=== PATIENT | male | born 1965 | race Caucasian/White ===

== ENCOUNTER 2017-05-12 18:01 | Emergency (ER) | payer MEDICAID, SELFPAY ==
[2017-05-12 18:01] VITALS: BP 123/77; PULSE 87; RESP 16; TEMP 36.2; O2SAT 100; BMI 20.7
--- NOTE | 2017-05-12 18:56 | CT_ITS ---
STUDY: CT ABDOMEN AND PELVIS WITHOUT CONTRAST REASON FOR EXAM: Male, 52 years old. Left flank pain and history of kidney stone RADIATION DOSAGE (If Supplied By Facility): CTDIvol = ( 6.74 ) mGy, DLP = ( 304.65 ) mGycm TECHNIQUE: Transaxial images were obtained from the dome of the diaphragm to the symphysis pubis without oral contrast, and without intravenous contrast. Sagittal and coronal images were reconstructed. Individualized dose optimization techniques were used for this CT. COMPARISON: None. FINDINGS: The visualized lung bases are unremarkable. The visualized portions of the heart are within normal limits. Normal liver. Normal gallbladder and extrahepatic biliary system. Normal spleen. Normal pancreas. Normal bilateral adrenal glands. Punctate nonobstructing nephroliths on the right. Mild left hydronephrosis. As a punctate ureterolith in the mid ureter measuring a millimeter or less. Normal visualized stomach. Normal small intestine. Sigmoid diverticulosis without evidence of acute inflammation. Colon is otherwise normal. The appendix is visualized and appears normal. Normal abdominal aorta. Normal inferior vena cava. Normal retroperitoneum. Normal urinary bladder. There is a small umbilical hernia containing fat. Normal osseous structures. CT/Abdomen/Pelvis without Cont IMPRESSION: Mild left hydronephrosis due to a punctate mid ureterolith. Electronically Signed: Christiano Harmon MD at 20:04 EDT , Service support ,
--- NOTE | 2017-05-12 18:57 | ED.VISSUMM ---
- ER Visit Summary Date of Service: 05/12/17 Chief Complaint: Left flank pain History of Present Illness: The patient is a 52 M presenting with left flank pain which started yesterday. He states this feels similar to his previous kidney stones. He believes he may have passed a kidney stone yesterday. He still has continuous pain in the left flank. He has had hematuria. He denies fever or other complaints. Physical Examination: Vitals are stable. Patient is afebrile. Alert no acute distress. HEENT exam is unremarkable. Neck is supple. Lungs are clear and equal bilaterally. Heart is regular rate and rhythm. Abdomen is soft nontender nondistended. No guarding or rebound Back: no cva tenderness Extremities are unremarkable. Skin is warm and dry. No focal neurologic deficit. Remainder of exam is unremarkable. Emergency Department Course and Treatment: Patient is ordered Toradol IV and declines. UA shows 5-10 red blood cells, 0-5 white blood cells. He is resting comfortably in the ED on reevaluation without medications. CT abdomen pelvis without contrast shows mild left hydronephrosis due to a punctate mid ureterolith. Patient is resting comfortably in the ED. He is given a prescription for naproxen. He is advised to follow-up with Dr. Lassiter. Advised return to ED for worsening complaints. Disposition: Discharge home Impression: Urolithiasis This note was generated with [employer] dictation software. It may contain incorrect words, spelling, and punctuation that were not noted in review of the chart prior to signing ED Disposition - Plan for ED Patient: Chief Complaint: Flank Pain Referrals: NOT,DEFINED [NON-STAFF] -
[2017-05-12 19:19] LABS: Bacteria 0 SEEN /hpf (None Seen); Mucous, Urine 0 SEEN /hpf (<or=2+)
--- NOTE | 2017-05-12 19:24 | ED.RN ---
DR FITZPATRICK AWARE THAT PT REFUSED IV AND MED.
[2017-05-12 19:26] LABS: Color, Urine Yellow (Yellow); Glucose, Dipstick Normal (Normal); Ketone-Dipstick Negative (Negative); Leukocyte Esterase-Dipstick 25 /ul (Negative); Nitrite-Dipstick Negative (Negative); Occult Blood-Urine 250 /ul (Negative); Protein-Dipstick Negative (Negative); Urine Bilirubin Dipstick Negative (Negative); Urine Clarity Sl. Cloudy (Clear); Urine Urobilinogen Normal (Normal)
[2017-05-12 19:36] LABS: Red Blood Cells-Urine 5-10 SEEN /hpf (0-5); Squamous Epithelial Cells - UA 0-5 SEEN /hpf (0-5); White Blood Cells 0-5 SEEN /hpf (0-5)
[2017-05-12 20:23] VITALS: BP 126/81; PULSE 78; RESP 16
--- NOTE | 2017-05-12 20:48 | ED.DEP ---
ED Disposition - Plan for ED Patient: Chief Complaint: Flank Pain Instructions: ED Stone Renal W Colic Prescriptions: Naproxen [Naprosyn] 500 mg PO BID PRN #20 tablet Referrals: NOT,DEFINED [NON-STAFF] - Alden Lassiter MD [STAFF PHYSICIAN] -
[2017-05-12 21:09] VITALS: BP 122/60; PULSE 74; RESP 18; O2SAT 96
== END 2017-05-12 21:10 | disposition home or self-care (01) ==
LOC: ED 19:40
PROVIDERS: Emergency Provider Emergency Medicine
DX: N13.2 Hydronephrosis with renal and ureteral calculous obstruction (principal); Z72.0 Tobacco use; Z87.442 Personal history of urinary calculi
CPT/HCPCS: 74176; 81001; 96374; 99282

== ENCOUNTER 2017-05-14 05:00 | Emergency (ER) | payer MEDICAID, SELFPAY ==
[2017-05-14 05:02] VITALS: BP 140/91; PULSE 69; RESP 18; TEMP 36.1; O2SAT 99; BMI 23.6
--- NOTE | 2017-05-14 05:10 | ED.VISSUMM ---
- ER Visit Summary Date of Service: 05/14/17 Chief Complaint: [] Right-sided flank pain History of Present Illness: The patient is a 52 M resents to the emergency department with 1 hour of right-sided flank pain. He woke with it. Sharp stabbing pain. He was seen in the emergency department 2 days ago and diagnosed with a left-sided punctate kidney stone. He did have very small punctate stones in the right kidney as well. He took 2 aspirin at home. Denies any other symptoms. He has a history of frequent kidney stones. No other symptoms. Physical Examination: Vital signs reviewed General: Well-nourished well-developed Head: Normocephalic atraumatic Eyes: Pupils equal round and reactive to light extraocular movements intact ENT: TMs clear no hemotympanum no trauma Neck: Nontender full range of motion Cardiovascular: Regular rate rhythm no murmurs normal S1-S2 Respiratory: No distress clear to auscultation bilaterally chest nontender Abdomen: Soft nontender nondistended normal bowel sounds no masses Back: Nontender no CVA tenderness Extremities: Nontender active range of motion ?4 extremities no trauma Skin: Normal color no trauma Neuro alert oriented cranial nerves II through XII intact normal strength sensation reflexes Test Results: [] Emergency Department Course and Treatment: [] At this time the patient likely has a small punctate kidney stone down the right ureter. Given 2 Percocet at his request. I do not feel he needs IV fluids or lab work. He just had a CAT scan therefore I will not repeat this. He will follow-up with urology and will give will be given a short course of pain medication. Treatment Plan: [] Disposition: [] Impression: R Sided kidney stone This note was generated with [employer] dictation software. It may contain incorrect words, spelling, and punctuation that were not noted in review of the chart prior to signing ED Disposition - Plan for ED Patient: Chief Complaint: Flank Pain Referrals: Care Physician,No Primary [Primary Care Provider] -
--- NOTE | 2017-05-14 05:12 | ED.DEP ---
ED Disposition - Plan for ED Patient: Disposition: Home or Assisted Living Chief Complaint: Flank Pain Instructions: ED Stone Renal W Colic Prescriptions: Oxycodone HCl/Acetaminophen [Percocet 5/325] 2 tab PO Q6H PRN PRN 3 Days #8 tab PRN Reason: Pain Ondansetron [Zofran Odt] 4 mg PO Q8H PRN PRN #10 tab PRN Reason: Nausea Referrals: Care Physician,No Primary [Primary Care Provider] - Alden Lassiter MD [STAFF PHYSICIAN] -
[2017-05-14] MEDS: oxyCODONE 5 MG Tablet 10 MG PO (05:14)
[2017-05-14 05:32] VITALS: RESP 16
== END 2017-05-14 05:32 | disposition home or self-care (01) ==
PROVIDERS: Emergency Provider Emergency Medicine
DX: N20.0 Calculus of kidney (principal); Z87.442 Personal history of urinary calculi
CPT/HCPCS: 99283; J7030

== ENCOUNTER 2017-07-30 01:07 | Emergency (ER) | payer MEDICAID, SELFPAY ==
[2017-07-30 01:07] VITALS: BP 180/100; PULSE 101; RESP 22; TEMP 36.8; O2SAT 98; BMI 21.2
--- NOTE | 2017-07-30 01:23 | ED.VISSUMM ---
- ER Visit Summary Date of Service: 07/30/17 Chief Complaint: Back injury History of Present Illness: The patient is a 52 M presenting for evaluation due to a back injury. Patient states that yesterday he jumped down off of approximately 3 foot wall and had a sudden onset of lower back pain. Patient states that the pain is worse with movement better when he stands up for a little while. Denies any radiation to his legs worsening with palpation fevers urinary retention incontinence constipation or fecal incontinence. Patient states that he took some Tylenol did not really seem to alleviate his symptoms. Physical Examination: Vitals: Within normal limits General: Well-nourished well-developed no acute distress Head: Normocephalic atraumatic ENT: Moist mucous membranes Neck: Supple no JVD Cardiovascular: Heart regular rate and rhythm no murmurs Respiratory: Respirations nondistressed, lung sounds clear to auscultation bilaterally Abdominal: Soft, nontender, nondistended, normal bowel sounds, no evidence of abdominal masses or pulsatile mass Back: Normal to inspection, no midline tenderness to palpation, straight leg raise negative bilaterally Extremities: Nontender, nonedematous, 2+ radial and PT pulses bilaterally symmetric Skin: Normal color no rash Neuro: 5/5 strength hip flexion, knee flexion, knee extension, dorsiflexion, plantarflexion, EHL. Sensation intact over all dermatomes of the lower extremities bilaterally, 2+ patellar and Achilles reflexes bilaterally symmetric, negative clonus bilaterally Test Results: None indicated Emergency Department Course and Treatment: Patient presented for evaluation secondary to back pain. Physical exam shows no evidence of red flag signs or symptoms of do not believe that imaging is necessary given the fact that the patient's pain is not reproducible with palpation and is not really midline. Patient will be treated with Naprosyn and Lidoderm in the emergency department will be discharged with a course of Naprosyn and Flexeril and instructions on stretching. Disposition: Discharge Impression: 1. Acute lumbosacral strain This note was generated with [employer] dictation software. It may contain incorrect words, spelling, and punctuation that were not noted in review of the chart prior to signing ED Disposition - Plan for ED Patient: Disposition: Home or Assisted Living Chief Complaint: Back Diagnosis: Lumbosacral strain Instructions: ED Sprain Strain Lumbar Prescriptions: Naproxen [Naprosyn] 500 mg PO BID PRN #20 tab Cyclobenzaprine [Flexeril] 10 mg PO TID PRN #20 tab PRN Reason: Muscle Spasm Referrals: Nino Chow MD [STAFF PHYSICIAN] - As Needed (For primary care) Alden Lassiter MD [STAFF PHYSICIAN] - (as needed for kidney stones)
--- NOTE | 2017-07-30 01:28 | ED.DCSUM_ITS ---
- ER Visit Summary Date of Service: 07/30/17 Chief Complaint: Back injury History of Present Illness: The patient is a 52 M presenting for evaluation due to a back injury. Patient states that yesterday he jumped down off of approximately 3 foot wall and had a sudden onset of lower back pain. Patient states that the pain is worse with movement better when he stands up for a little while. Denies any radiation to his legs worsening with palpation fevers urinary retention incontinence constipation or fecal incontinence. Patient states that he took some Tylenol did not really seem to alleviate his symptoms. Physical Examination: Vitals: Within normal limits General: Well-nourished well-developed no acute distress Head: Normocephalic atraumatic ENT: Moist mucous membranes Neck: Supple no JVD Cardiovascular: Heart regular rate and rhythm no murmurs Respiratory: Respirations nondistressed, lung sounds clear to auscultation bilaterally Abdominal: Soft, nontender, nondistended, normal bowel sounds, no evidence of abdominal masses or pulsatile mass Back: Normal to inspection, no midline tenderness to palpation, straight leg raise negative bilaterally Extremities: Nontender, nonedematous, 2+ radial and PT pulses bilaterally symmetric Skin: Normal color no rash Neuro: 5/5 strength hip flexion, knee flexion, knee extension, dorsiflexion, plantarflexion, EHL. Sensation intact over all dermatomes of the lower extremities bilaterally, 2+ patellar and Achilles reflexes bilaterally symmetric , negative clonus bilaterally Test Results: None indicated Emergency Department Course and Treatment: Patient presented for evaluation secondary to back pain. Physical exam shows no evidence of red flag signs or symptoms of do not believe that imaging is necessary given the fact that the patient's pain is not reproducible with palpation and is not really midline. Patient will be treated with Naprosyn and Lidoderm in the emergency department will be discharged with a course of Naprosyn and Flexeril and instructions on stretching. Disposition: Discharge Impression: 1. Acute lumbosacral strain This note was generated with [employer] dictation software. It may contain incorrect words, spelling, and punctuation that were not noted in review of the chart prior to signing ED Disposition - Plan for ED Patient: Disposition: Home or Assisted Living Chief Complaint: Back Diagnosis: Lumbosacral strain Instructions: ED Sprain Strain Lumbar Prescriptions: Naproxen [Naprosyn] 500 mg PO BID PRN #20 tab Cyclobenzaprine [Flexeril] 10 mg PO TID PRN #20 tab PRN Reason: Muscle Spasm Referrals: Nino Chow MD [STAFF PHYSICIAN] - As Needed (For primary care) Alden Lassiter MD [STAFF PHYSICIAN] - (as needed for kidney stones)
[2017-07-30] MEDS: Naproxen 500 MG Tablet PO (01:40)
[2017-07-30] MEDS: Lidocaine 5% Patch 1 PATCH TOPICAL (01:40)
--- NOTE | 2017-07-30 01:42 | ED.RN ---
DISCHARGE INSTRUCTIONS GIVEN TO AND REVIEWED WITH PATIENT, PATIENT DENIES QUESTIONS OR CONCERNS AND VOICES UNDERSTANDING OF DISCHARGE INSTRUCTIONS. PT AMBULATES OUT OF ROOM WITHOUT DIFFICULTY.
== END 2017-07-30 01:44 | disposition home or self-care (01) ==
PROVIDERS: Emergency Provider Emergency Medicine
DX: S39.012A Strain of muscle, fascia and tendon of lower back, initial encounter (principal); W17.89XA Other fall from one level to another, initial encounter; Y93.9 Activity, unspecified; Y92.9 Unspecified place or not applicable; Y99.9 Unspecified external cause status; Z72.0 Tobacco use
CPT/HCPCS: 99283

== ENCOUNTER 2018-05-04 18:19 | Emergency (ER) | payer SELFPAY ==
[2018-05-04 18:20] VITALS: BP 126/80; PULSE 91; RESP 15; TEMP 36.6; O2SAT 99; BMI 22.8
== END 2018-05-04 19:00 ==
LOC: ED 19:22
PROVIDERS: Emergency Provider Emergency Medicine
DX: R10.9 Unspecified abdominal pain (principal)

== ENCOUNTER 2023-08-12 14:28 | Emergency (ER) | payer SELFPAY ==
[2023-08-12 14:28] VITALS: BP 164/100; BP 184/10; PULSE 105; PULSE 92; RESP 14; RESP 16; TEMP 35.7; O2SAT 98; O2SAT 99; BMI 25.9
--- NOTE | 2023-08-12 15:24 | EKG12_ITS ---
Test Reason : Blood Pressure : / mmHG Vent. Rate : 085 BPM Atrial Rate : 085 BPM P-R Int : 118 ms QRS Dur : 084 ms QT Int : 376 ms P-R-T Axes : 080 071 071 degrees QTc Int : 447 ms Normal sinus rhythm Normal ECG Confirmed by Jose León [id number]), editor producer MONTRELL COKNLIN ([id number]) on 08/15/2023 9:15:59 AM Referred By: Confirmed By:Jose León
--- NOTE | 2023-08-12 15:24 | EX.ED.DYSGE1 ---
HPI History of Present Illness Chief Complaint: Hypertension Detail of Chief Complaint: Hypertension Informant: patient Narrative Narrative: Patient presents to the emergency department with concern for elevated blood pressure. Patient states that he thinks it has been going on for about a year as he has been in the [facility] and it was high when he first got to [facility] where he spent 3 months and then went to another [facility] and spent 9 months. Patient came in today to get his blood pressure checked and again noted that it was high and wanted to be seen. He complains of feeling lightheaded and dizzy at times with standing and walking. He denies any chest pain. He does describe some shortness of breath. He is a smoker. He denies fevers chills or sweats. Describes just some intermittent headaches. He takes no medications currently. [facility] Medical History no medical history Home Medications ?Medication ?Instructions ?Recorded ?Last Taken ?Type amlodipine 5 mg tablet (Norvasc) 5 mg PO DAILY #30 tabs 08/12/23 Unknown Rx Allergy/AdvReac Type Severity Reaction Status Date / Time No Known Allergies Allergy Verified 05/14/17 05:01 Social History Smoking Status: Current every day smoker tobacco type: cigarettes ROS ROS ED Review of Systems ROS Unobtainable: other Constitutional Constitutional ED: Reports lethargy; Denies chills, fever(s), sweats or weight loss Eyes Eyes: Denies blurry vision, change in vision or diplopia ENT ENT ED: Denies rhinorrhea or sore throat Cardiovascular Cardiovascular: Denies chest pain, orthopnea or racing heartbeat Respiratory/Chest Respiratory/Chest: Reports dyspnea; Denies cough, dyspnea on exertion, orthopnea or sputum Gastrointestinal Gastrointestinal: Denies abdominal pain, diarrhea, nausea or vomiting Genitourinary Genitourinary ED: Denies dysuria, hematuria or urinary frequency Musculoskeletal Musculoskeletal: Denies arthralgias, back pain, myalgias or neck pain Integumentary Denies abscess, Abrasions or rash Neurologic Neurologic: Reports headache(s) and other Details: Lightheadedness ; Denies weakness Psychiatric Psychiatric: Denies anxiety, depression or suicidal thoughts Endocrine Endocrinology: Denies polydipsia, polyphagia or polyuria Hematologic/Lymphatic Hematologic/Lymphatic: Denies easy bleeding, easy bruising or lymphadenopathy Allergic/Immunologic Allergic/Immunologic ED: Denies mouth swelling, tongue swelling or urticaria EXAM Physical Exam Const Vital Signs: 08/12/23 14:28 08/12/23 14:28 08/12/23 15:46 Temperature 96.3 F L Temperature Source Temporal Pulse Rate 92 105 H Respiratory Rate 16 14 Respiratory Effort Normal Respiratory Pattern Normal Blood Pressure 164/100 H 184/10 H Blood Pressure Mean 121 68 Pulse Ox 99 98 Oxygen Delivery Method Room Air Room Air 08/12/23 15:51 Temperature Temperature Source Pulse Rate 85 Respiratory Rate 18 Respiratory Effort Respiratory Pattern Blood Pressure 159/95 H Blood Pressure Mean 116 Pulse Ox 98 Oxygen Delivery Method Positive well nourished and well developed General Appearance ED: well developed and NAD HEENT Reports TM's clear and moist mucous membranes normocephalic and atraumatic; Negative for trauma or tenderness Tympanic Membrane ED: Yes TM's clear Eyes PERRL and EOMs intact bilaterally General Eye ED: Negative for pale conjunctiva or scleral icterus Neck no lymphadenopathy, supple and no JVD General: Negative for tenderness Chest Wall inspection of chest normal and palpation of chest normal Chest: Negative for tenderness Resp normal respiratory effort and clear to auscultation bilaterally Effort and Inspection: Negative for respiratory distress or pain with movement Auscultation: Negative for rhonchi, wheezes or diminished lung sounds Cardio regular rate, regular rhythm, S1 normal heart sound, S2 normal heart sound and no murmurs Peripheral Pulses: pulses 2+ throughout GI normal to inspection, nondistended, normoactive bowel sounds, soft to palpation, non-tender, non-distended and no masses Back/Spine no CVA tenderness and no thoracic nor lumbar tenderness Extremity normal to inspection General Extremety ED: Negative for edema General Extremity: Negative for edema Neuro oriented x3, CN's II-XII intact bilaterally, no sensory deficits noted and gait normal Sensorium / Orientation: awake, alert, oriented to person, oriented to place and oriented to time Motor Exam: strength 5/5 throughout and strength abnormal Psych mental status grossly normal Skin no rashes or lesions noted and no wounds MDM MDM MDM Narrative Medical decision making narrative: Patient presents to the emergency department with concern for hypertension that he has had ongoing for about a year. He has been in [facility] and does not see a primary care physician for any healthcare. Denies severe chest pain or or severe headaches. IV line established. EKG obtained shows sinus rhythm with rate of 85 bpm with no acute ST segment changes. CBC with differential white count of 8.2 with hemoglobin 14 and platelet count of 364. Chemistries unremarkable. BUN was 21 and creatinine 1.24. Troponin normal at 6. Chest x-ray unremarkable. Patient's blood pressure without any treatment now in the 150s over 90s. Will go ahead and start him on Norvasc 5 mg p.o. daily. Will refer to primary care physician for follow-up. Discharged home stable condition Lab Data Attestation: I reviewed the patient's lab results. Labs: Laboratory Results - last 24 hr 08/12/23 15:53 WBC 8.2 RBC 4.61 Hgb 14.0 Hct 43.1 MCV 93.5 MCH 30.4 MCHC 32.5 RDW Std Deviation 44.5 H RDW Coeff of Ana Lilia 13.2 Plt Count 364 MPV 10.4 Immature Gran % (Auto) 0.900 Neut % (Auto) 68.5 Lymph % (Auto) 18.5 L [place] % (Auto) 7.9 Eos % (Auto) 3.5 Baso % (Auto) 0.7 Absolute Neuts (auto) 5.6 Absolute Lymphs (auto) 1.52 Nucleated RBC % 0 Sodium 142 Potassium 4.6 Chloride 109 H Carbon Dioxide 28.0 Anion Gap 5 BUN 21 H Creatinine 1.24 Estim Creat Clear Calc 62.06 Est GFR (MDRD) Af Amer 77 Est GFR (MDRD) Non-Af 63 BUN/Creatinine Ratio 16.9 Glucose 107 H Calcium 9.5 Troponin I High Sens 6 Radiography Diagnostic Testing: Clinical Impression(s) from Imaging Studies Chest X-Ray 08/12/23 15:55 IMPRESSION: No radiographic evidence of acute cardiopulmonary disease. Electronically Signed: Shadi Walls DO at 16:06 EDT Reading Location ID and State: [facility] / [place] Tel [phone], Service support , 1 view chest x-ray obtained interpreted by myself no evidence of infiltrate or pneumothorax or acute disease process. Radiology in agreement. EKG Initial EKG: Attestation: I personally reviewed and interpreted this EKG as follows: Comments: Sinus rhythm with ventricular rate of 85 bpm with no acute ST segment changes Discharge Plan Triage Chief Complaint: Hypertension ED Provider: Kian Perez Dx/Rx/DC Orders Clinical Impression: Hypertension Instructions: Hypertension Dc Prescriptions: New amlodipine [Norvasc] 5 mg tablet 5 mg PO DAILY Qty: 30 0RF Primary Care Provider: Care Physician,No Primary Referrals: Caryn Purcell MD [Med Staff - Transformation Consultant] - 3-5 Days Care Physician,No Primary [Primary Care Provider] - Print Language: Albanian Disposition Disposition: Home, Self Care
--- NOTE | 2023-08-12 15:47 | ED.RN ---
patient c/o headache, dizziness, and blurry vision. denies any other complaints
[2023-08-12 15:51] VITALS: BP 159/95; PULSE 85; RESP 18; O2SAT 98
[2023-08-12] MEDS: 0.9% Normal Saline (1000mL) 1,000 ML 150 ML IV (15:55)
--- NOTE | 2023-08-12 15:55 | RAD_ITS ---
INDICATION: dyspnea'' EXAMINATION/TECHNIQUE: X-RAY - XR Chest 1 View COMPARISON: April 17, 2008 FINDINGS: LINES/DEVICES: None. LUNGS: No consolidation, edema or effusion. No pneumothorax. MEDIASTINUM AND CARDIOVASCULAR STRUCTURES: Cardiac silhouette not enlarged. Central airways and mediastinal contour are unremarkable. BONES AND SOFT TISSUES: Unremarkable. RAD/Chest 1 View (Portable) IMPRESSION: No radiographic evidence of acute cardiopulmonary disease. Electronically Signed: Shadi Walls DO at 16:06 EDT ,
[2023-08-12 16:02] LABS: Absolute Lymphocyte Count 1.52 X10^3/uL (0.83-4.51); Absolute Neutrophil Count 5.6 X10^3/uL (2.0-7.7); Basophil# 0.06 X10^3/uL; Basophil% 0.7 % (0-1); Eosinophil# 0.29 X10^3/uL; Eosinophils% 3.5 % (0-5); Hematocrit 43.1 % (40-54); Lymphocyte # 1.52 X10^3/ul (0.83-4.51); Lymphocyte % 18.5 % (19-41); Mean Corp Hgb Conc 32.5 g/dL (32-36); Mean Corpuscular Hgb 30.4 pg (27.0-32.0); Mean Corpuscular Volume 93.5 fL (80-94); Mean Platelet Vol. 10.4 fl (6.2-12.0); Monocyte# 0.65 X10^3/uL; Monocyte% 7.9 % (0-10); NRBC Flagged by Analyzer 0 % (0-5); Neutrophil # 5.63 X10^3/uL (2.7-7.7); Neutrophil % 68.5 % (47-70); Platelet Count 364 K/mm3 (150-450); RBC Distribution Width CV 13.2 % (11.6-14.6); RBC Distribution Width SD 44.5 fl (35.1-43.9); Red Blood Count 4.61 M/mm3 (4.6-6.2); White Blood Count 8.2 K/mm3 (4.4-11.0)
[2023-08-12 16:26] LABS: Anion Gap 5 (5-15); BUN 21 mg/dL (7-18); BUN/Creat Ratio 16.9 RATIO (10-20); Calcium,Total 9.5 mg/dL (8.5-10.1); Chloride 109 mmol/L (98-107); Creatinine, Serum 1.24 mg/dL (0.70-1.30); EST Glomerular Filtration Rate 63 mL/min (>60); Est Glom Filt Rate - Afr Amer 77 mL/min (>60); Estimated Creatinine Clearance 62.06 ml/min; Glucose 107 mg/dL (74-106); Potassium 4.6 mmol/L (3.5-5.1); Sodium Level 142 mmol/L (136-145); Troponin-I HS 6 pg/mL (3.0-78.0)
[2023-08-12 16:42] VITALS: BP 159/98; PULSE 76; RESP 16; TEMP 36.9; O2SAT 99
== END 2023-08-12 16:49 | disposition home or self-care (01) ==
PROVIDERS: Emergency Provider Emergency Medicine; Visit Provider Emergency Medicine
DX: I10 Essential (primary) hypertension (principal); F17.210 Nicotine dependence, cigarettes, uncomplicated
CPT/HCPCS: 71045; 80048; 84484; 85025; 93005; 96360; 99284; J7030; A4216